=== PATIENT | female | born 1995 | race American Indian/Alaskan Native ===

== ENCOUNTER 2017-08-23 08:29 | Outpatient (CLI) | payer MEDICAID, OTHER ==
[2017-08-23] MEDS ORDERED: LACTATED RINGERS 500 ML IV ONE (08:40)
[2017-08-23 09:22] LABS: Bacteria,Urine 2+ /HPF (Negative); Bilirubin,Urine NEG (Negative); Blood,Urine NEG (Negative); Color,Urine Yellow (Yellow); Mucus,Urine 2+ /HPF; Urobilinogen,Urine < 2.0 mg/dL (<2.0)
[2017-08-23 09:44] LABS: Amphetamine Screen,Urine PRESUMPTIVE NEGATIVE; Benzodiazepines Screen,Urine PRESUMPTIVE NEGATIVE; Cannabinoid Screen,Urine PRESUMPTIVE NEGATIVE; Cocaine Screen,Urine PRESUMPTIVE NEGATIVE; Methadone Screen,Urine PRESUMPTIVE NEGATIVE; Opiate Screen,Urine PRESUMPTIVE NEGATIVE
[2017-08-23 10:43] VITALS: BP 101/58
== END 2017-08-23 10:04 | disposition home or self-care (01) ==
LOC: TRG 08:29
PROVIDERS: ATTEND Obstetrics & Gynecology
DX: O47.03 False labor before 37 completed weeks of gestation, third trimester (principal); Z3A.32 32 weeks gestation of pregnancy; Z79.899 Other long term (current) drug therapy
CPT/HCPCS: 80307; 81001

== ENCOUNTER 2017-08-25 14:11 | Emergency (ER) | payer SELFPAY ==
[2017-08-25 14:44] VITALS: BP 98/50
== END 2017-08-25 15:14 | disposition left against medical advice (07) ==
LOC: ED 14:11
DX: R10.2 Pelvic and perineal pain (principal); Z53.21 Procedure and treatment not carried out due to patient leaving prior to being seen by health care provider

== ENCOUNTER 2017-09-05 13:43 | Outpatient (CLI) | payer MEDICAID ==
[2017-09-05 14:47] LABS: Bacteria,Urine 4+ /HPF (Negative); Bilirubin,Urine NEG (Negative); Blood,Urine MOD (Negative); Color,Urine Amber (Yellow); Mucus,Urine 3+ /HPF
[2017-09-05] MEDS ORDERED: LACTATED RINGERS 500 ML IV ONE (15:00)
--- NOTE | 2017-09-05 17:05 | Ultrasound Report ---
FINAL REPORT EXAM: US OB > = 14 WEEKS FETUS HISTORY: BLEEDING COMPARISON: None. TECHNIQUE: Obstetric ultrasound was performed. FINDINGS: The cervix measures 4 centimeters in length and is closed. There is a grade 2 posterior fundal placenta. There is a single live intrauterine in cephalic presentation. heart rate is 156 beats per minute. Amniotic fluid index is 8.8 centimeters. Anatomical survey demonstrates normal intracranial contents including the cerebellum, choroid plexus, and lateral ventricles. The stomach, kidneys, bladder, diaphragm, heart, and spine are normal. There is a normal triple vessel cord and cord insertion. Biparietal diameter corresponds to a gestational age of 30 weeks, 3 days. Head circumference corresponds to a gestational age of 31 weeks, 2 days. Abdominal circumference corresponds to a gestational age of 30 weeks, 0 days. Femoral length corresponds to a gestational age of 31 weeks, 1 day. Composite gestational age by ultrasound is 30 weeks, 5 days, with estimated date of delivery of 11/09/2017. Estimated weight is 1585 grams. IMPRESSION: Single live intrauterine with composite gestational age by ultrasound of 30 weeks, 5 days, with estimated date of delivery of 11/09/2017.
== END 2017-09-05 17:25 | disposition home or self-care (01) ==
LOC: TRG 13:43 → LD 13:45 → TRG 17:25
PROVIDERS: ATTEND Obstetrics & Gynecology
DX: O47.03 False labor before 37 completed weeks of gestation, third trimester (principal); Z3A.30 30 weeks gestation of pregnancy
CPT/HCPCS: 59025; 76805; 81001

== ENCOUNTER 2017-09-05 20:03 | Outpatient (CLI) | payer MEDICAID ==
[2017-09-05 20:37] VITALS: BP 92/54
== END 2017-09-05 20:59 | disposition home or self-care (01) ==
LOC: TRG 20:03
PROVIDERS: ATTEND Obstetrics & Gynecology
DX: O47.02 False labor before 37 completed weeks of gestation, second trimester (principal); Z3A.34 34 weeks gestation of pregnancy
CPT/HCPCS: 59025

== ENCOUNTER 2017-09-17 22:34 | Outpatient (CLI) | payer MEDICAID ==
[2017-09-17 22:51] VITALS: BP 116/56
--- NOTE | 2017-09-18 00:47 | Ultrasound Report ---
FINAL REPORT PROCEDURE: US OB LIMITED TECHNIQUE: Real-time limited sonographic examination was performed for evaluation of amniotic fluid volume, placental position for each fetus with image documentation (1 or more fetuses). CPT 67189 HISTORY: carmela COMPARISON: No prior studies are available for comparison. FINDINGS: There is a single fetus in a vertex presentation. The placenta is along the fundus of the uterus. Four quadrant amniotic fluid volume measures 10.3 centimeters. heart rate 154 beats per minute. IMPRESSION: There is a single fetus in a vertex presentation. The 4 quadrant amniotic fluid volume measures 10.3 centimeters.
== END 2017-09-18 00:40 | disposition home or self-care (01) ==
LOC: TRG 22:34
PROVIDERS: ATTEND Obstetrics & Gynecology
DX: O47.03 False labor before 37 completed weeks of gestation, third trimester (principal); Z3A.36 36 weeks gestation of pregnancy
CPT/HCPCS: 59025; 76815

== ENCOUNTER 2017-09-23 15:12 | Outpatient (CLI) | payer MEDICAID ==
[2017-09-23] MEDS ORDERED: NITRATEST PAPER MC ONE (15:20)
[2017-09-23 15:33] VITALS: BP 98/50
== END 2017-09-23 19:05 | disposition home or self-care (01) ==
LOC: TRG 15:12
PROVIDERS: ATTEND Obstetrics & Gynecology
DX: O47.03 False labor before 37 completed weeks of gestation, third trimester (principal); Z3A.35 35 weeks gestation of pregnancy
CPT/HCPCS: 59025

== ENCOUNTER 2018-05-26 15:39 | Emergency (ER) | payer MEDICAID, OTHER ==
[2018-05-26 15:52] VITALS: BP 107/53
--- NOTE | 2018-05-26 15:52 | Emergency Department Report ---
Chief Complaint: Extremity Injury, Lower Stated Complaint: RT FOOT/ANKLE Time Seen by Provider: 05/26/18 15:50 - HPI History of Present Illness: PMH NONE LMP BC NO PERIODS PSH NONE RX NONE NO CIG/ETOH/DRUGS CC R ANKLE PAIN P HITTING YESTERDAY ON A BED. SHE STATES SWOLLEN EARLIER AMBULATORY WO LIMP MSE COMPLETED MSE screening note: Focused history and physical exam performed. Due to findings the following was ordered: ED Disposition for MSE Condition: Stable
[2018-05-26] MEDS ORDERED: NORCO 5/325 PO ONE (16:11)
[2018-05-26] MEDS ORDERED: IBUPROFEN PO ONE (16:11)
--- NOTE | 2018-05-26 16:12 | Emergency Department Report ---
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 She complained of pain and swelling to right ankle with some bruising. Pain is 6 out of 10 and worse with movement and no alleviating factors. Denies any pain rating of her extremities. no medication taken MD Complaint: ankle injury (injury to right ankle) Onset/Timin Injury: Ankle: Right (pain, swollen and person) Type of Injury: blunt Place: work Severity: moderate Severity scale (0 -10): 6 Improves With: nothing Worsens With: weight bearing, palpation Context: direct blow Associated Symptoms: swelling, ambulatory. denies: numbness, tingling, unable to bear weight, able to partially bear weight Treatments Prior to Arrival: other (none) - Related Data Previous Rx's Medication Instructions Recorded Last Taken Type Ibuprofen [Motrin] 600 mg PO Q8H PRN #12 tablet 05/26/18 Unknown Rx Allergies Allergy/AdvReac Type Severity Reaction Status Date / Time No Known Allergies Allergy Verified 09/24/13 21:11 ED Review of Systems ROS: Stated complaint: RT FOOT/ANKLE Other details as noted in HPI Constitutional: denies: chills, fever ENT: denies: throat pain, congestion Respiratory: denies: cough, shortness of breath, wheezing Cardiovascular: denies: chest pain, palpitations, dyspnea on exertion, edema, syncope Gastrointestinal: denies: nausea, vomiting Musculoskeletal: joint swelling, arthralgia. denies: back pain, myalgia Skin: denies: rash Neurological: denies: headache, numbness, paresthesias, confusion, abnormal gait, vertigo ED Past Medical Hx - Past Medical History Previous Medical History?: No Hx Hypertension: No Hx Congestive Heart Failure: No Hx Diabetes: No Hx Deep Vein Thrombosis: No Hx Renal Disease: No Hx Sickle Cell Disease: No Hx Seizures: No Hx Asthma: No Hx COPD: No Hx HIV: No - Surgical History Past Surgical History?: No - Family History Family history: no significant - Social History Smoking Status: Never Smoker Substance Use Type: None - Medications Home Medications: Home Medications Medication Instructions Recorded Confirmed Last Taken Type Ibuprofen [Motrin] 600 mg PO Q8H PRN #12 tablet 05/26/18 Unknown Rx ED Physical Exam - General Limitations: No Limitations General appearance: alert, in no apparent distress - Head Head exam: Present: atraumatic, normocephalic, normal inspection - Eye Eye exam: Present: normal appearance, PERRL, EOMI Pupils: Present: normal accommodation - ENT ENT exam: Present: normal exam, normal orophraynx, mucous membranes moist - Neck Neck exam: Present: normal inspection, full ROM. Absent: tenderness, lymphadenopathy - Respiratory Respiratory exam: Present: normal lung sounds bilaterally. Absent: respiratory distress, chest wall tenderness - Cardiovascular Cardiovascular Exam: Present: regular rate, normal rhythm, normal heart sounds - Extremities Exam Extremities exam: Present: normal inspection, full ROM, tenderness (right ankle), normal capillary refill, joint swelling (mild swelling), other (extremity physical exam except for right ankle with mild swelling and tender to palpate. No bony deformity or crepitus. No joint effusion. No laceration and mild ecchymosis.). Absent: pedal edema, calf tenderness - Back Exam Back exam: Present: normal inspection, full ROM, other (ambulates without any difficulties.). Absent: tenderness, paraspinal tenderness, vertebral tenderness, rash noted - Neurological Exam Neurological exam: Present: alert, oriented X3, normal gait, reflexes normal. Absent: motor sensory deficit - Psychiatric Psychiatric exam: Present: normal affect, normal mood - Skin Skin exam: Present: warm, dry, intact, normal color, ecchymosis (to right ankle, minimal). Absent: erythema ED Course Vital Signs 05/26/18 05/26/18 15:50 16:18 Temperature 97.9 F Pulse Rate 71 Respiratory 18 18 Rate Blood Pressure 107/53 O2 Sat by Pulse 99 Oximetry - Reevaluation(s) Reevaluation #1: 05/26/18 17:05 Patient given 5/ tablets and Motrin 600 mg by mouth in emergency room which relieved her pain. ED Lower Extremity MDM - Radiology Data Radiology results: report reviewed Right ankle 2 view x-ray dictated radiologist report reviewed by myself in no acute findings noted Findings [facility] [address] [place] [address] XRay Report Signed Patient: SUNNY SNIDER MR#: [id number] : 1995 Acct:[id number] Age/Sex: 22 / F ADM Date: 05/26/18 Loc: ED Attending Dr: Ordering Physician: LORI FIGUEROA Date of Service: 05/26/18 Procedure(s): XR ankle 2V RT Accession Number(s): [id number] cc: LORI FIGUEROA Fluoro Time In Minutes: FINAL REPORT EXAM: XR ANKLE 2V RT HISTORY: ANKLE PAIN TECHNIQUE: AP and lateral radiographs of the right ankle. PRIORS: None. FINDINGS: No fracture. No dislocation. Normal mineralization. No soft tissue abnormality. The joint spaces are maintained. No joint effusion. IMPRESSION: Normal right ankle. Transcribed By: MG Dictated By: REYNA ROBLEDO MD Electronically Authenticated By: REYNA ROBLEDO MD Signed Date/Time: 05/26/181655 DD/ 54 TD/TT: 05/26/181654 - Medical Decision Making This is a 22-year-old female here report that she injured her right ankle work and she has had pain. She received Jesse and Motrin and emergency room and pain his pain relief. Her vital signs are stable she is afebrile and patient discharged home in stable condition with prescription for Motrin and to follow- up with her primary care doctor in 3-5 days if she is not better. Rice therapy explained. - Differential Diagnosis FX, dislocation, sprain, strain, MSK pain Critical care attestation.: If time is entered above; I have spent that time in minutes in the direct care of this critically ill patient, excluding procedure time. ED Disposition Clinical Impression: Ankle pain, right Qualifiers: Chronicity: acute Qualified Code(s): M25.571 - Pain in right ankle and joints of right foot Right ankle injury Qualifiers: Encounter type: initial encounter Qualified Code(s): S99.911A - Unspecified injury of right ankle, initial encounter Disposition: DC-01 TO HOME OR SELFCARE Is pt being admited?: No Does the pt Need Aspirin: No Condition: Stable Instructions: Arthralgia (ED), Ankle Exercises (GEN), RICE Therapy (ED) Additional Instructions: Please follow up with orthopedic doctor a primary care doctor if he pain is not better in 3-5 days. Take Motrin for pain but please not take this medication and to stomach is aching cause irritation to some of N and If his symptoms worsen, return to emergency room` Referrals: MELANIE MCKINNEY MD [Staff Physician] - 3-5 Days [facility] [Outside] - 3-5 Days Forms: Work/School Release Form(ED)
--- NOTE | 2018-05-26 16:56 | XRay Report ---
FINAL REPORT EXAM: XR ANKLE 2V RT HISTORY: ANKLE PAIN TECHNIQUE: AP and lateral radiographs of the right ankle. PRIORS: None. FINDINGS: No fracture. No dislocation. Normal mineralization. No soft tissue abnormality. The joint spaces are maintained. No joint effusion. IMPRESSION: Normal right ankle.
== END 2018-05-26 17:59 | disposition home or self-care (01) ==
LOC: ED 15:39
DX: S99.911A Unspecified injury of right ankle, initial encounter (principal); W22.8XXA Striking against or struck by other objects, initial encounter; Y93.89 Activity, other specified; Y92.89 Other specified places as the place of occurrence of the external cause; Y99.8 Other external cause status

== ENCOUNTER 2018-09-10 14:22 | Emergency (ER) | payer SELFPAY ==
[2018-09-10 14:32] VITALS: BP 114/51
--- NOTE | 2018-09-10 14:58 | Emergency Department Report ---
Blank Doc - Documentation Documentation: This is a 22-year-old female that presents with right thigh muscle pain. Denies any calf pain. Denies any injuries. This initial assessment/diagnostic orders/clinical plan/treatment(s) is/are subject to change based on patient's health status, clinical progression and re-assessment by fellow clinical providers in the ED. Further treatment and workup at subsequent clinical providers discretion. Patient/guardians urged not to elope from the ED as their condition may be serious if not clinically assessed and managed. Initial orders include: 1- Patient sent to [facility] for further evaluation and treatment
--- NOTE | 2018-09-10 17:44 | Emergency Department Report ---
ED Lower Extremity HPI - General Chief Complaint: Extremity Injury, Lower Stated Complaint: RT LEG PAIN Time Seen by Provider: 09/10/18 14:56 Source: patient Mode of arrival: Ambulatory Limitations: No Limitations - History of Present Illness Initial Comments: Patient is a 22-year-old Af[place] female who presents for right anterior thigh pain states she strained at work lifting 3 days ago there is no numbness no tingling no erythema ,pain is exacerbated by movement and palpation. rom is intact pt is ambulatory with steady gait. MD Complaint: thigh injury Onset/Timin -: days(s) Injury: Thigh: Right Type of Injury: hyperextension Place: work Severity: moderate Severity scale (0 -10): 3 Improves With: rest Worsens With: movement, palpation Context: other (lifting hyperextended. ) Associated Symptoms: ambulatory. denies: snap/pop sensation, swelling, numbness, tingling - Related Data Previous Rx's Medication Instructions Recorded Last Taken Type Ibuprofen [Motrin] 600 mg PO Q8H PRN #12 tablet 05/26/18 Unknown Rx Cyclobenzaprine [Flexeril] 10 mg PO TID PRN #30 tablet 09/10/18 Unknown Rx Ibuprofen [Motrin 800 MG tab] 800 mg PO Q8HR PRN #30 tablet 09/10/18 Unknown Rx Menthol/Camphor [[place] 1 applicatio TP QID PRN #1 tube 09/10/18 Unknown Rx Ointment] Allergies Allergy/AdvReac Type Severity Reaction Status Date / Time No Known Allergies Allergy Verified 09/24/13 21:11 ED Review of Systems ROS: Stated complaint: RT LEG PAIN Other details as noted in HPI Constitutional: denies: chills, fever Eyes: denies: eye pain, eye discharge, vision change ENT: denies: ear pain, throat pain Respiratory: denies: cough, shortness of breath, wheezing Cardiovascular: denies: chest pain, palpitations Endocrine: no symptoms reported Gastrointestinal: denies: abdominal pain, nausea, diarrhea Genitourinary: denies: urgency, dysuria, discharge Musculoskeletal: other (right thigh pain ) Skin: denies: rash, lesions Neurological: as per HPI Psychiatric: denies: anxiety, depression Hematological/Lymphatic: denies: easy bleeding, easy bruising ED Past Medical Hx - Past Medical History Previous Medical History?: Yes Hx Hypertension: No Hx Congestive Heart Failure: No Hx Diabetes: No Hx Deep Vein Thrombosis: No Hx Renal Disease: No Hx Sickle Cell Disease: No Hx Seizures: No Hx Asthma: No Hx COPD: No Hx HIV: No - Surgical History Past Surgical History?: No - Social History Smoking Status: Never Smoker Substance Use Type: Non Opiate Pain, Other - Medications Home Medications: Home Medications Medication Instructions Recorded Confirmed Last Taken Type Ibuprofen [Motrin] 600 mg PO Q8H PRN #12 tablet 05/26/18 Unknown Rx Cyclobenzaprine [Flexeril] 10 mg PO TID PRN #30 tablet 09/10/18 Unknown Rx Ibuprofen [Motrin 800 MG tab] 800 mg PO Q8HR PRN #30 tablet 09/10/18 Unknown Rx Menthol/Camphor [[place] 1 applicatio TP QID PRN #1 tube 09/10/18 Unknown Rx Ointment] ED Physical Exam - General Limitations: No Limitations General appearance: alert, in no apparent distress - Head Head exam: Present: atraumatic, normocephalic - Eye Eye exam: Present: normal appearance, PERRL, EOMI Pupils: Present: normal accommodation - ENT ENT exam: Present: mucous membranes moist - Neck Neck exam: Present: normal inspection - Respiratory Respiratory exam: Present: normal lung sounds bilaterally. Absent: respiratory distress, chest wall tenderness - Cardiovascular Cardiovascular Exam: Present: regular rate, normal rhythm. Absent: systolic murmur, diastolic murmur, rubs, gallop - GI/Abdominal GI/Abdominal exam: Present: soft, normal bowel sounds. Absent: distended, tenderness, bruit, hernia - Rectal Rectal exam: Present: deferred - Extremities Exam Extremities exam: Present: normal inspection, full ROM, tenderness (anterior thigh pain to deep palpation no swelling no ecchymosis no deformity rom intact unrestrictec, strength 5/5 ), normal capillary refill. Absent: pedal edema, calf tenderness - Back Exam Back exam: Present: normal inspection, full ROM. Absent: tenderness, CVA tenderness (R), CVA tenderness (L), muscle spasm, rash noted - Neurological Exam Neurological exam: Present: alert, oriented X3, CN II-XII intact, normal gait, reflexes normal - Psychiatric Psychiatric exam: Present: normal affect, normal mood - Skin Skin exam: Present: warm, dry, intact, normal color. Absent: rash ED Course Vital Signs 09/10/18 14:30 Temperature 98.2 F Pulse Rate 69 Respiratory 18 Rate Blood Pressure 114/51 Blood Pressure 114/51 [Right] O2 Sat by Pulse 99 Oximetry ED Lower Extremity MDM - Medical Decision Making this arturo a thigh muscle strain , plan nsaids muscle relaxant analgesic balm moist heat therapy follow up with pcp in 2-3 days return to ed if symptoms worsen return to ed if symptoms worsen. Critical care attestation.: If time is entered above; I have spent that time in minutes in the direct care of this critically ill patient, excluding procedure time. ED Disposition Clinical Impression: Muscle strain of right thigh Qualifiers: Encounter type: initial encounter Qualified Code(s): S76.911A - Strain of unspecified muscles, fascia and tendons at thigh level, right thigh, initial encounter Disposition: TO HOME OR SELFCARE Is pt being admited?: No Does the pt Need Aspirin: No Condition: Stable Instructions: Muscle Strain (ED) Prescriptions: Cyclobenzaprine [Flexeril] 10 mg PO TID PRN #30 tablet PRN Reason: Muscle Spasm Ibuprofen [Motrin 800 MG tab] 800 mg PO Q8HR PRN #30 tablet PRN Reason: pain Menthol/Camphor [[place] Ointment] 1 applicatio TP QID PRN #1 tube PRN Reason: pain Referrals: JOSE SIMON MD [Primary Care Provider] - 3-5 Days Forms: Work/School Release Form(ED) Time of Disposition: 17:44
== END 2018-09-10 17:51 | disposition home or self-care (01) ==
LOC: ED 14:22
DX: S76.911A Strain of unspecified muscles, fascia and tendons at thigh level, right thigh, initial encounter (principal); X50.9XXA Other and unspecified overexertion or strenuous movements or postures, initial encounter; Y93.89 Activity, other specified; Y92.89 Other specified places as the place of occurrence of the external cause; Y99.8 Other external cause status

== ENCOUNTER 2019-03-23 15:28 | Emergency (ER) | payer SELFPAY ==
--- NOTE | 2019-03-23 17:42 | Event Note ---
ED Screening Note Date of service: 03/23/19 Time: 17:39 ED Screening Note: This is a 23 y.o. F. that presents to the ER with chest discomfort, chills, cough, and myalgia for 1 day. States daughter is sick with similar symptoms. Taking medication without relief. LMP control This initial assessment/diagnostic orders/clinical plan/treatment(s) is/are subject to change based on patients health status, clinical progression and re- assessment by fellow clinical providers in the ED. Further treatment and workup at subsequent clinical providers discretion. Patient/guardian urged not to elope from the ED as their condition may be serious if not clinically assessed and managed. Initial orders include: CXR
--- NOTE | 2019-03-23 18:35 | XRay Report ---
CHEST PA AND LATERAL VIEWS INDICATION: cough and fever. COMPARISON: None FINDINGS: Support devices: None Heart: Normal Lungs/Pleura: No acute pulmonary or pleural findings. IMPRESSION: 1. No active disease. Signer Name: Ron Ingram MD Signed: 03/23/2019 6:31 PM Workstation Name: [id number]
[2019-03-23] MEDS ORDERED: IBUPROFEN 800 MG TAB PO ONE (21:21)
[2019-03-23] MEDS ORDERED: ONDANSETRON 4 MG ODT TAB PO ONE (21:23)
[2019-03-23] MEDS ORDERED: IPRATROPIUM/ALBUTEROL SULFATE 3 ML AMPUL.NEB IH ONE (21:28)
[2019-03-23] MEDS ORDERED: predniSONE 20 MG TAB PO ONE (21:28)
--- NOTE | 2019-03-23 21:39 | Emergency Department Report ---
- General Chief Complaint: Upper Respiratory Infection Stated Complaint: COUGH/CHEST PAIN Time Seen by Provider: 03/23/19 17:39 Source: patient Mode of arrival: Ambulatory Limitations: No Limitations - History of Present Illness Initial Comments: This is a 23 y.o. F. that presents to the ER with coug, fever, chills, and myalgia for 1 day. pt states multiple sick contacts. there are no relieving factors. symptoms are exacerbated by activity and environmental exposure. pt denies sob, no cp at this time. MD Complaint: fever, cough, sore throat, rhinorrhea, nasal congestion -: hour(s) (12) Severity: moderate Severity scale (0 -10): 4 Quality: aching Consistency: constant Improves With: nothing Worsens With: activity Context: sick contacts Associated Symptoms: fever, chills, myalgias, rhinorrhea, nasal congestion, sore throat, cough, hoarseness, ear pain. denies: right sweats, weight loss - Related Data Previous Rx's Medication Instructions Recorded Last Taken Type Ibuprofen [Motrin] 600 mg PO Q8H PRN #12 tablet 05/26/18 Unknown Rx Cyclobenzaprine [Flexeril] 10 mg PO TID PRN #30 tablet 09/10/18 Unknown Rx Ibuprofen [Motrin 800 MG tab] 800 mg PO Q8HR PRN #30 tablet 09/10/18 Unknown Rx Menthol/Camphor [Medical [place] 1 applicatio TP QID PRN #1 tube 09/10/18 Unknown Rx Ointment] ALBUTEROL Inhaler (OR & NICU) 2 puff IH QID PRN #8.5 gram 03/23/19 Unknown Rx [ProAir HFA Inhaler] Azithromycin [Zithromax Z-AYAD] 250 mg PO DAILY #6 tab 03/23/19 Unknown Rx Benzonatate [Tessalon Perles] 100 mg PO Q8HR PRN #30 capsule 03/23/19 Unknown Rx Ibuprofen [Motrin 800 MG tab] 800 mg PO Q8HR PRN #30 tablet 03/23/19 Unknown Rx predniSONE [Deltasone] 40 mg PO QDAY 5 Days #10 tab 03/23/19 Unknown Rx Allergies Allergy/AdvReac Type Severity Reaction Status Date / Time No Known Allergies Allergy Verified 03/23/19 16:16 ED Review of Systems ROS: Stated complaint: COUGH/CHEST PAIN Other details as noted in HPI Constitutional: denies: chills, fever Eyes: denies: eye pain, eye discharge, vision change ENT: ear pain, throat pain, congestion Respiratory: cough, shortness of breath, wheezing Cardiovascular: denies: chest pain, palpitations Endocrine: no symptoms reported Gastrointestinal: denies: abdominal pain, nausea, vomiting, diarrhea Genitourinary: denies: urgency, dysuria, discharge Musculoskeletal: denies: back pain, joint swelling, arthralgia Skin: denies: rash, lesions Neurological: denies: headache, weakness, numbness, paresthesias, confusion, vertigo Psychiatric: denies: auditory hallucinations Hematological/Lymphatic: denies: easy bleeding, easy bruising ED Past Medical Hx - Past Medical History Hx Hypertension: No Hx Congestive Heart Failure: No Hx Diabetes: No Hx Deep Vein Thrombosis: No Hx Renal Disease: No Hx Sickle Cell Disease: No Hx Seizures: No Hx Asthma: No Hx COPD: No Hx HIV: No - Social History Smoking Status: Never Smoker Substance Use Type: None - Medications Home Medications: Home Medications Medication Instructions Recorded Confirmed Last Taken Type Ibuprofen [Motrin] 600 mg PO Q8H PRN #12 tablet 05/26/18 Unknown Rx Cyclobenzaprine [Flexeril] 10 mg PO TID PRN #30 tablet 09/10/18 Unknown Rx Ibuprofen [Motrin 800 MG tab] 800 mg PO Q8HR PRN #30 tablet 09/10/18 Unknown Rx Menthol/Camphor [Medical [place] 1 applicatio TP QID PRN #1 tube 09/10/18 Unknown Rx Ointment] ALBUTEROL Inhaler (OR & NICU) 2 puff IH QID PRN #8.5 gram 03/23/19 Unknown Rx [ProAir HFA Inhaler] Azithromycin [Zithromax Z-AYAD] 250 mg PO DAILY #6 tab 03/23/19 Unknown Rx Benzonatate [Tessalon Perles] 100 mg PO Q8HR PRN #30 capsule 03/23/19 Unknown Rx Ibuprofen [Motrin 800 MG tab] 800 mg PO Q8HR PRN #30 tablet 03/23/19 Unknown Rx predniSONE [Deltasone] 40 mg PO QDAY 5 Days #10 tab 03/23/19 Unknown Rx ED Physical Exam - General Limitations: No Limitations General appearance: alert, in no apparent distress - Head Head exam: Present: atraumatic, normocephalic - Eye Eye exam: Present: normal appearance, PERRL, EOMI Pupils: Present: normal accommodation - ENT ENT exam: Present: mucous membranes moist - Expanded ENT Exam Expanded Ear exam: Present: normal external inspection Throat exam: Positive: tonsillar erythema, tonsillomegaly, other (uvula midline no stridor ). Negative: tonsillar exudate, R peritonsillar mass, L peritonsillar mass - Neck Neck exam: Present: normal inspection, full ROM. Absent: tenderness - Respiratory Respiratory exam: Present: normal lung sounds bilaterally, chest wall ten derness. Absent: respiratory distress, wheezes, stridor - Cardiovascular Cardiovascular Exam: Present: regular rate, normal rhythm, normal heart sounds. Absent: systolic murmur, diastolic murmur, rubs, gallop - GI/Abdominal GI/Abdominal exam: Present: soft, normal bowel sounds, other. Absent: distended, tenderness, guarding, bruit, hernia - Rectal Rectal exam: Present: deferred - Extremities Exam Extremities exam: Present: normal inspection, full ROM, normal capillary refill. Absent: tenderness, pedal edema, joint swelling - Back Exam Back exam: Present: normal inspection, full ROM, muscle spasm. Absent: tenderness, CVA tenderness (R), CVA tenderness (L), rash noted - Neurological Exam Neurological exam: Present: alert, oriented X3, CN II-XII intact, normal gait, reflexes normal. Absent: motor sensory deficit - Psychiatric Psychiatric exam: Present: normal affect, normal mood - Skin Skin exam: Present: warm, dry, intact, normal color. Absent: rash ED Course Vital Signs 03/23/19 17:39 Temperature 99.9 F H Pulse Rate 134 H Respiratory 18 Rate Blood Pressure 125/61 O2 Sat by Pulse 97 Oximetry ED Medical Decision Making - Radiology Data Radiology results: image reviewed Ordering Physician: JHOAN ALEXANDER Date of Service: 03/23/19 Procedure(s): XR chest routine 2V Accession Number(s): [id number] cc: JHOAN ALEXANDER Fluoro Time In Minutes: CHEST PA AND LATERAL VIEWS INDICATION: cough and fever. COMPARISON: None FINDINGS: Support devices: None Heart: Normal Lungs/Pleura: No acute pulmonary or pleural findings. IMPRESSION: 1. No active disease. Signer Name: Ron Ingram MD Signed: 03/23/2019 6:31 PM Workstation Name: [id number] Transcribed By: TM Dictated By: Ron Ingram MD Electronically Authenticated By: Ron Ingram MD Signed Date/Time: 03/23/191830 DD/ 29 TD/TT: - Medical Decision Making Patient was is nebulized treatment here in ED stay she has albuterol at home , rapid strep still pending, patient advises that she has to leave she can no longer wait, plan treat for bronchitis Z-Ayad ,albuterol ,and prednisone Tessalon Perles, and ibuprofen when necessary pain fever patient will follow up with PCP in 2-3 days return to emergency department should symptoms worsen patient verbalizes agreement and understanding with same patient DC'd to home in stable condition at this time. Heart rate is reduced to 102 bmp. Critical care attestation.: If time is entered above; I have spent that time in minutes in the direct care of this critically ill patient, excluding procedure time. ED Disposition Clinical Impression: Bronchitis, Viral syndrome Disposition: DC-01 TO HOME OR SELFCARE Is pt being admited?: No Does the pt Need Aspirin: No Condition: Stable Instructions: Acute Bronchitis (ED), Viral Syndrome (ED) Prescriptions: predniSONE [Deltasone] 40 mg PO QDAY 5 Days #10 tab Ibuprofen [Motrin 800 MG tab] 800 mg PO Q8HR PRN #30 tablet PRN Reason: pain fever ALBUTEROL Inhaler (OR & NICU) [ProAir HFA Inhaler] 2 puff IH QID PRN #8.5 gram PRN Reason: Shortness Of Breath Benzonatate [Tessalon Perles] 100 mg PO Q8HR PRN #30 capsule PRN Reason: Cough Azithromycin [Zithromax Z-AYAD] 250 mg PO DAILY #6 tab Referrals: [facility] [Outside] - 3-5 Days Forms: Work/School Release Form(ED)
[2019-03-23 22:33] VITALS: BP 90/50
== END 2019-03-23 22:33 | disposition home or self-care (01) ==
LOC: ED 15:28
DX: J40 Bronchitis, not specified as acute or chronic (principal); B34.9 Viral infection, unspecified
CPT/HCPCS: 71046; 99283; J7512; Q0162

== ENCOUNTER 2020-02-28 18:37 | Emergency (ER) | payer SELFPAY ==
[2020-02-28 20:10] LABS: Basophils % (Auto) 0.5 % (0.0-1.8); Eosinophils % (Auto) 0.4 % (0.0-4.3); Hematocrit 31.8 % (30.3-42.9); Hemoglobin 11.1 gm/dl (10.1-14.3); Lymphocytes # (Auto) 2.2 K/mm3 (1.2-5.4); Lymphocytes % (Auto) 25.4 % (13.4-35.0); Mean Corpuscular HGB Conc 35 % (30-34); Mean Corpuscular Volume 88 fl (79-97); Monocytes # (Auto) 0.7 K/mm3 (0.0-0.8); Monocytes % (Auto) 8.5 % (0.0-7.3); Platelet Count 330 K/mm3 (140-440); Red Blood Count 3.61 M/mm3 (3.65-5.03); Red Cell Distribution Width 15.3 % (13.2-15.2)
[2020-02-28 20:12] LABS: Bacteria,Urine 1+ /HPF (Negative); Bilirubin,Urine NEG (Negative); Blood,Urine SM (Negative); Color,Urine Yellow (Yellow); Mucus,Urine FEW /HPF; Protein,Urine <15 mg/dL mg/dL (Negative)
[2020-02-28 20:25] LABS: Blood Urea Nitrogen 9 mg/dL (7-17); Calcium 8.7 mg/dL (8.4-10.2); Hemolysis Index 4
[2020-02-28 20:26] LABS: BUN/Creatinine Ratio 15
--- NOTE | 2020-02-28 20:34 | Ultrasound Report ---
EXAMINATION: US OB <= 14 weeks fetus HISTORY: abdominal pain TECHNIQUE: Multiple transabdominal and endovaginal longitudinal and transverse 2D real time ultrasoun d images through the pelvis were acquired. In addition, power Doppler was performed. FINDINGS: Uterus measures 9.7 x 9.1 x 8.6 cm. There is a single live intrauterine , with heart r ate measuring 159 bpm. Measurements correspond to a gestational age of 12 weeks and 5 days. Amniotic fluid appears appropriate, though not measured. Ovaries are not visualized. No ectopic is identified. No free fluid is seen. IMPRESSION: Single live intrauterine with measurements corresponding to a gestational age of 12 weeks a nd 5 days. heart rate measures 159 bpm. Signer Name: Kenneth Ríos MD Signed: 02/28/2020 8:30 PM Workstation Name: [id number]
--- NOTE | 2020-02-28 21:03 | Emergency Department Report ---
ED Female HPI - General Chief complaint: Abdominal Pain Stated complaint: ABD PAINS Time Seen by Provider: 02/28/20 20:27 Source: patient Mode of arrival: Ambulatory Limitations: No Limitations - History of Present Illness Initial comments: Plan for your female to the emergency department complaining of being 2 months and having some mild nausea and abdominal cramps which caused her to miss work schedule him department for evaluation said is primarily needs a work note Complaint: pelvic pain -: Gradual, days(s) Radiation: non-radiating Severity: mild Quality: cramping, aching Consistency: intermittent Improves with: none Worsens with: none Are you Now?: Yes Associated Symptoms: abdominal pain, nausea/vomiting. denies: vaginal discharge, vaginal bleeding, loss of appetite, dysuria, hematuria, syncope, weakness - Related Data Previous Rx's Medication Instructions Recorded Last Taken Type Ibuprofen [Motrin] 600 mg PO Q8H PRN #12 tablet 05/26/18 Unknown Rx Cyclobenzaprine [Flexeril] 10 mg PO TID PRN #30 tablet 09/10/18 Unknown Rx Ibuprofen [Motrin 800 MG tab] 800 mg PO Q8HR PRN #30 tablet 09/10/18 Unknown Rx Menthol/Camphor [[place] 1 applicatio TP QID PRN #1 tube 09/10/18 Unknown Rx Ointment] Albuterol Mdi (or & Nicu Only) 2 puff IH QID PRN #8.5 gram 03/23/19 Unknown Rx [ProAir HFA Inhaler] Azithromycin [Zithromax Z-NICOLE] 250 mg PO DAILY #6 tab 03/23/19 Unknown Rx Benzonatate [Tessalon Perles] 100 mg PO Q8HR PRN #30 capsule 03/23/19 Unknown Rx Ibuprofen [Motrin 800 MG tab] 800 mg PO Q8HR PRN #30 tablet 03/23/19 Unknown Rx predniSONE [Deltasone] 40 mg PO QDAY 5 Days #10 tab 03/23/19 Unknown Rx Doxylamine Succinate/Vit B6 1 each PO BID #20 tablet. 02/28/20 Unknown Rx [Juwan Mckeon 10-10 mg Tablet] Allergies Allergy/AdvReac Type Severity Reaction Status Date / Time No Known Allergies Allergy Verified 03/23/19 16:16 ED Review of Systems ROS: Stated complaint: ABD PAINS Other details as noted in HPI Comment: All other systems reviewed and negative ED Past Medical Hx - Past Medical History Previous Medical History?: No Hx Hypertension: No Hx Congestive Heart Failure: No Hx Diabetes: No Hx Deep Vein Thrombosis: No Hx Renal Disease: No Hx Sickle Cell Disease: No Hx Seizures: No Hx Asthma: No Hx COPD: No Hx HIV: No - Surgical History Past Surgical History?: No - Social History Smoking Status: Never Smoker Substance Use Type: None - Medications Home Medications: Home Medications Medication Instructions Recorded Confirmed Last Taken Type Ibuprofen [Motrin] 600 mg PO Q8H PRN #12 tablet 05/26/18 Unknown Rx Cyclobenzaprine [Flexeril] 10 mg PO TID PRN #30 tablet 09/10/18 Unknown Rx Ibuprofen [Motrin 800 MG tab] 800 mg PO Q8HR PRN #30 tablet 09/10/18 Unknown Rx Menthol/Camphor [[place] 1 applicatio TP QID PRN #1 tube 09/10/18 Unknown Rx Ointment] Albuterol Mdi (or & Nicu Only) 2 puff IH QID PRN #8.5 gram 03/23/19 Unknown Rx [ProAir HFA Inhaler] Azithromycin [Zithromax Z-NICOLE] 250 mg PO DAILY #6 tab 03/23/19 Unknown Rx Benzonatate [Tessalon Perles] 100 mg PO Q8HR PRN #30 capsule 03/23/19 Unknown Rx Ibuprofen [Motrin 800 MG tab] 800 mg PO Q8HR PRN #30 tablet 03/23/19 Unknown Rx predniSONE [Deltasone] 40 mg PO QDAY 5 Days #10 tab 03/23/19 Unknown Rx Doxylamine Succinate/Vit B6 1 each PO BID #20 tablet. 02/28/20 Unknown Rx [Diclegis Dr 10-10 mg Tablet] ED Physical Exam - General Limitations: No Limitations General appearance: alert, in no apparent distress - Head Head exam: Present: atraumatic, normocephalic - Eye Eye exam: Present: normal appearance, PERRL Pupils: Present: normal accommodation - ENT ENT exam: Present: normal exam, normal orophraynx, mucous membranes moist - Neck Neck exam: Present: normal inspection, full ROM - Respiratory Respiratory exam: Present: normal lung sounds bilaterally. Absent: respiratory distress, wheezes, chest wall tenderness, accessory muscle use - Cardiovascular Cardiovascular Exam: Present: regular rate, normal rhythm. Absent: systolic murmur, diastolic murmur, rubs, gallop - GI/Abdominal GI/Abdominal exam: Present: soft, normal bowel sounds. Absent: tenderness, guarding, hyperactive bowel sounds, hypoactive bowel sounds - Extremities Exam Extremities exam: Present: normal inspection - Back Exam Back exam: Present: normal inspection - Neurological Exam Neurological exam: Present: alert, oriented X3 - Psychiatric Psychiatric exam: Present: normal affect, normal mood - Skin Skin exam: Present: warm, dry, intact, normal color. Absent: rash ED Course Vital Signs 02/28/20 19:21 Temperature 98.3 F Pulse Rate 74 Respiratory 18 Rate Blood Pressure 98/53 O2 Sat by Pulse 100 Oximetry ED Medical Decision Making - Lab Data Result diagrams: 02/28/20 19:25 02/28/20 19:25 - Radiology Data Radiology results: report reviewed Referring Physician:CHRIS DURÁN IIIPatient Name:SUNNY Hanson nt ID:[id number] of :[id number]:FemaleAccession:[id number] Date:[id number] Status:Finalized Findings [facility] [address] [place] [address] Ultrasound Report Signed Patient: SUNNY SNIDER MR#: [id number] : 1995 Acct:[id number] Age/Sex: 24 / F ADM Date: 02/28/20 Loc: ED Attending Dr: Ordering Physician: CHRIS DURÁN III, MD Date of Service: 02/28/20 Procedure(s): US OB <= 14 weeks fetus Accession Number(s): [id number] cc: CHRIS DURÁN III, MD EXAMINATION: US OB <= 14 weeks fetus HISTORY: abdominal pain TECHNIQUE: Multiple transabdominal and endovaginal longitudinal and transverse 2D real time ultrasound images through the pelvis were acquired. In addition, power Doppler was performed. FINDINGS: Uterus measures 9.7 x 9.1 x 8.6 cm. There is a single live intrauterine , with heart rate measuring 159 bpm. Measurements correspond to a gestational age of 12 weeks and 5 days. Amniotic fluid appears appropriate, though not measured. Ovaries are not visualized. No ectopic is identified. No free fluid is seen. IMPRESSION: Single live intrauterine with measurements corresponding to a gestational age of 12 weeks and 5 days. heart rate measures 159 bpm. Signer Name: Monica Ríos MD Signed: 02/28/2020 8:30 PM Workstation Name: [id number] Transcribed By: NIC Dictated By: MONICA LAZO MD Electronically Authenticated By: MONICA LAZO MD Signed Date/Time: 02/28/202029 DD/ 25 TD/TT: - Medical Decision Making This patient presents with vaginal bleeding in the first trimester, differential diagnosis includes ectopic , IUP, month threatened/inevitable , along with a completed . Patient is HDS and without a history of coagulopathy or infectious symptoms. The ultrasound does reveal an IUP at 12 weeks with an elevated hCG quant Based on exam history and ED work-up patient presentation is not consistent with an ectopic , life-threatening coagulopathy, trauma, serious bacterial infection, central process or other emergency Critical care attestation.: If time is entered above; I have spent that time in minutes in the direct care of this critically ill patient, excluding procedure time. ED Disposition Clinical Impression: Pelvic pain affecting , Nausea & vomiting Disposition: - TO HOME OR SELFCARE Is pt being admited?: No Does the pt Need Aspirin: No Condition: Stable Instructions: Abdominal Pain (ED), Nausea and Vomiting, Adult, Exercise During , Pelvic Pain, Female, [id number] Additional Instructions: Please keep your appointment with your DENT REMOVER this Tuesday Prescriptions: Doxylamine Succinate/Vit B6 [Juwan Mckeon 10-10 mg Tablet] 1 each PO BID #20 tablet. Referrals: PRIMARY CARE, [Primary Care Provider] - 3-5 Days [facility] [Provider Group] - 3-5 Days
[2020-02-28 21:06] VITALS: BP 112/48
== END 2020-02-28 21:51 | disposition home or self-care (01) ==
LOC: ED 18:37
DX: O26.891 Other specified pregnancy related conditions, first trimester (principal); R10.2 Pelvic and perineal pain; O21.8 Other vomiting complicating pregnancy; Z79.899 Other long term (current) drug therapy; Z3A.12 12 weeks gestation of pregnancy
CPT/HCPCS: 36415; 76801; 80048; 81001; 84702; 85025

== ENCOUNTER 2020-04-04 11:03 | Emergency (ER) | payer SELFPAY ==
[2020-04-04 11:14] VITALS: BP 107/54
[2020-04-04] MEDS ORDERED: ACETAMINOPHEN 325 MG TAB PO ONE (11:21)
[2020-04-04] MEDS ORDERED: METOCLOPRAMIDE 10 MG TAB PO ONE (11:21)
--- NOTE | 2020-04-04 11:22 | Emergency Department Report ---
ED HPI - General Chief complaint: Vaginal Bleeding Stated complaint: 19WKS PREG/VAG BLEED/NO MOVEMENT Time Seen by Provider: 04/04/20 11:19 Source: patient Mode of arrival: Ambulatory Limitations: No Limitations - History of Present Illness Initial comments: Pt is a 24 yo female who presents to the ED with c/o vaginal bleeding that began last night. she states she is changing her pad approximately every 3 hours. she has associated lower abd cramping. she reports she is 19 weeks 2 days . she denies any fever, diarrhea, back pain, dysuria, abnormal vaignal discharge. she states she has not yet had care but has an upcoming appointment in apr 2020. no pmhx. no allergies to meds. /P:2/A:0 - Related Data Previous Rx's Medication Instructions Recorded Last Taken Type Ibuprofen [Motrin] 600 mg PO Q8H PRN #12 tablet 05/26/18 Unknown Rx Cyclobenzaprine [Flexeril] 10 mg PO TID PRN #30 tablet 09/10/18 Unknown Rx Ibuprofen [Motrin 800 MG tab] 800 mg PO Q8HR PRN #30 tablet 09/10/18 Unknown Rx Menthol/Camphor [[place] 1 applicatio TP QID PRN #1 tube 09/10/18 Unknown Rx Ointment] Albuterol Mdi (or & Nicu Only) 2 puff IH QID PRN #8.5 gram 03/23/19 Unknown Rx [ProAir HFA Inhaler] Azithromycin [Zithromax Z-NICOLE] 250 mg PO DAILY #6 tab 03/23/19 Unknown Rx Benzonatate [Tessalon Perles] 100 mg PO Q8HR PRN #30 capsule 03/23/19 Unknown Rx Ibuprofen [Motrin 800 MG tab] 800 mg PO Q8HR PRN #30 tablet 03/23/19 Unknown Rx predniSONE [Deltasone] 40 mg PO QDAY 5 Days #10 tab 03/23/19 Unknown Rx Doxylamine Succinate/Vit B6 1 each PO BID #20 tablet. 02/28/20 Unknown Rx [Juwan [place]ke[place] 10-10 mg Tablet] Allergies Allergy/AdvReac Type Severity Reaction Status Date / Time No Known Allergies Allergy Verified 03/23/19 16:16 ED Review of Systems ROS: Stated complaint: 19WKS PREG/VAG BLEED/NO MOVEMENT Other details as noted in HPI Comment: All other systems reviewed and negative ED Past Medical Hx - Past Medical History Previous Medical History?: No Hx Hypertension: No Hx Congestive Heart Failure: No Hx Diabetes: No Hx Deep Vein Thrombosis: No Hx Renal Disease: No Hx Sickle Cell Disease: No Hx Seizures: No Hx Asthma: No Hx COPD: No Hx HIV: No - Surgical History Past Surgical History?: No - Social History Smoking Status: Never Smoker Substance Use Type: None - Medications Home Medications: Home Medications Medication Instructions Recorded Confirmed Last Taken Type Ibuprofen [Motrin] 600 mg PO Q8H PRN #12 tablet 05/26/18 Unknown Rx Cyclobenzaprine [Flexeril] 10 mg PO TID PRN #30 tablet 09/10/18 Unknown Rx Ibuprofen [Motrin 800 MG tab] 800 mg PO Q8HR PRN #30 tablet 09/10/18 Unknown Rx Menthol/Camphor [[place] 1 applicatio TP QID PRN #1 tube 09/10/18 Unknown Rx Ointment] Albuterol Mdi (or & Nicu Only) 2 puff IH QID PRN #8.5 gram 03/23/19 Unknown Rx [ProAir HFA Inhaler] Azithromycin [Zithromax Z-NICOLE] 250 mg PO DAILY #6 tab 03/23/19 Unknown Rx Benzonatate [Tessalon Perles] 100 mg PO Q8HR PRN #30 capsule 03/23/19 Unknown Rx Ibuprofen [Motrin 800 MG tab] 800 mg PO Q8HR PRN #30 tablet 03/23/19 Unknown Rx predniSONE [Deltasone] 40 mg PO QDAY 5 Days #10 tab 03/23/19 Unknown Rx Doxylamine Succinate/Vit B6 1 each PO BID #20 tablet. 02/28/20 Unknown Rx [Dic[address]yn[address] Dr 10-10 mg Tablet] ED Physical Exam - General Limitations: No Limitations General appearance: alert, in no apparent distress - Head Head exam: Present: atraumatic, normocephalic - Eye Eye exam: Present: normal appearance - ENT ENT exam: Present: mucous membranes moist - Respiratory Respiratory exam: Present: normal lung sounds bilaterally. Absent: respiratory distress, wheezes, rales, rhonchi, stridor, chest wall tenderness, accessory muscle use, decreased breath sounds, prolonged expiratory - Cardiovascular Cardiovascular Exam: Present: regular rate, normal rhythm, normal heart sounds. Absent: systolic murmur, diastolic murmur, rubs, gallop - GI/Abdominal GI/Abdominal exam: Present: soft, normal bowel sounds. Absent: distended, tenderness, guarding, rebound, rigid - Neurological Exam Neurological exam: Present: alert, oriented X3 - Psychiatric Psychiatric exam: Present: normal affect, normal mood - Skin Skin exam: Present: warm, dry, intact ED Course Vital Signs 04/04/20 11:12 Temperature 98.0 F Pulse Rate 80 Respiratory 18 Rate Blood Pressure 107/54 [Right] O2 Sat by Pulse 98 Oximetry ED Medical Decision Making - Lab Data Lab Results 04/04/20 Range/Units 11:23 Urine Color Yellow (Yellow) Urine Turbidity Clear (Clear) Urine pH 8.0 H (5.0-7.0) Ur Specific [place] 1.017 (1.003-1.030) Urine Protein 30 mg/dl (Negative) mg/dL Urine Glucose (UA) Neg (Negative) mg/dL Urine Ketones Neg (Negative) mg/dL Urine Blood Neg (Negative) Urine Nitrite Neg (Negative) Urine Bilirubin Neg (Negative) Urine Urobilinogen < 2.0 (<2.0) mg/dL Ur Leukocyte Esterase Sm (Negative) Urine WBC (Auto) 3.0 (0.0-6.0) /HPF Urine RBC (Auto) 2.0 (0.0-6.0) /HPF U Epithel Cells (Auto) 6.0 (0-13.0) /HPF Urine Mucus Few /HPF - Medical Decision Making Pt is a 24 yo female who presents to the ED with c/o vaginal bleeding that began last night. she states she is changing her pad approximately every 3 hours. she has associated lower abd cramping. she reports she is 19 weeks 2 days . she denies any fever, diarrhea, back pain, dysuria, abnormal vaignal discharge. she states she has not yet had care but has an upcoming appointment in apr 2020. no pmhx. no allergies to meds. /P:2/A:0. Vitals are normal. No abdominal tenderness on exam, no guarding, no rebound, no rigidity, normal bowel sounds, no peritoneal signs. Advised patient that we would need to do blood work, obtain a urine sample, and for an ultrasound to be performed, she verbalized understanding and was agreeable with plan. 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 Patient refused blood work. I advised patient the risks associated with leaving without a complete medical examination and AGAINST MEDICAL ADVICE. I discussed the risks to not only the patient but also her unborn fetus and she continued to states that she would leave AMA. The patient is alert and oriented x3. The patient exhibits decision-making capacity. The patient is free from distracting injury. The risk of leaving without a complete medical examination, and AGAINST MEDICAL ADVICE, were explained to the patient, and they included , disability, paralysis, permanent loss of quality of life. Patient verbalized understanding to these and was able to articulate these risk in their own words. Critical care attestation.: If time is entered above; I have spent that time in minutes in the direct care of this critically ill patient, excluding procedure time. ED Disposition Clinical Impression: Vaginal bleeding Abdominal pain Qualifiers: Abdominal location: lower abdomen, unspecified Qualified Code(s): R10.30 - Lower abdominal pain, unspecified Qualifiers: Weeks of gestation: unspecified Qualified Code(s): Z34.90 - Encounter for supervision of normal , unspecified, unspecified trimester Disposition: DC-07 LEFT AGAINST MED ADVICE Is pt being admited?: No Does the pt Need Aspirin: No Condition: Undetermined Referrals: PRIMARY CARE, [Primary Care Provider] - 3-5 Days Forms: AMA Form
[2020-04-04 12:07] LABS: Bilirubin,Urine NEG (Negative); Blood,Urine NEG (Negative); Color,Urine Yellow (Yellow); Mucus,Urine FEW /HPF; Urobilinogen,Urine < 2.0 mg/dL (<2.0)
--- NOTE | 2020-04-04 12:07 | Ultrasound Report ---
ULTRASOUND OBSTETRIC INDICATION: 19 weeks , abd pain, bleeding. Clinical Gestational Age (GA): Not provided. TECHNIQUE: Transabdominal. COMPARISON: OB ultrasound 02/28/2020 FINDINGS: There is a single intrauterine . Biparietal Diameter = 4.1 cm = 18 weeks, 3 day(s). Head Circumference = 14.8 cm = 17 weeks, 6 day(s). Abdominal Circumference = 11.5 cm = 17 weeks, 2 day(s). Femur Length = 2.2 cm = 16 weeks, 3 day(s). Average Ultrasound Age (AUA) = 17 weeks, 4 day(s). Heart Rate: 157 beats per minute. Estimated Weight in grams (if calculated): 178 g Estimated Weight Growth Percentile (if calculated): Not calculated. Position: cephalic. Cervix: closed. Length in cm (if measured): 2.3 Placenta: anterior and free of the os. Amniotic Fluid Volume: normal Amniotic Fluid Index (PAM) in cm (if calculated): Not calculated. Maternal Adnexa: No significant abnormality. IMPRESSION: 1. Single, living intrauterine with estimated sonographic age of 17 weeks, 4 day(s). 2. Shortened cervical length, 2.3 cm. Findings could represent cervical, and is. Recommend clinical c orrelation and further evaluation/follow-up as warranted. Signer Name: Ion Fowler MD Signed: 04/04/2020 12:03 PM Workstation Name: [id number]
== END 2020-04-04 12:11 | disposition left against medical advice (07) ==
LOC: ED 11:03
DX: O20.9 Hemorrhage in early pregnancy, unspecified (principal); Z3A.19 19 weeks gestation of pregnancy; Z79.1 Long term (current) use of non-steroidal anti-inflammatories (NSAID); Z79.899 Other long term (current) drug therapy
CPT/HCPCS: 76805; 81001

== ENCOUNTER 2020-05-14 09:17 | Outpatient (CLI) | payer OTHER ==
[2020-05-14 09:36] VITALS: BP 99/57
[2020-05-14 10:18] LABS: Bilirubin,Urine NEG (Negative); Blood,Urine NEG (Negative); Color,Urine Yellow (Yellow); Mucus,Urine 2+ /HPF; Protein,Urine <15 mg/dL mg/dL (Negative)
--- NOTE | 2020-05-14 11:25 | Event Note ---
Date: 05/14/20 Pt came in at 23+ weeks with vaginal itching and occ d/c. White creamy d/c noted on spec exam. PT sent home and terazol script given. RTO 1 week.
== END 2020-05-14 11:27 | disposition home or self-care (01) ==
LOC: TRG 09:17 → APU 09:19 → TRG 11:27
PROVIDERS: ATTEND Obstetrics & Gynecology
DX: O26.892 Other specified pregnancy related conditions, second trimester (principal); L29.9 Pruritus, unspecified; Z3A.23 23 weeks gestation of pregnancy
CPT/HCPCS: 81001

== ENCOUNTER 2020-07-03 20:54 | Outpatient (CLI) | payer MEDICAID, OTHER ==
[2020-07-03 21:30] VITALS: BP 111/57
[2020-07-03 22:32] LABS: Bacteria,Urine 1+ /HPF (Negative); Bilirubin,Urine NEG (Negative); Blood,Urine NEG (Negative); Color,Urine Yellow (Yellow); Mucus,Urine FEW /HPF; Protein,Urine <15 mg/dL mg/dL (Negative)
--- NOTE | 2020-07-03 22:52 | Event Note ---
Date: 07/03/20 Triage nurse called with pt c/o lower pelvic pain and urine dip abnormal with leucocytes and bacteria. Macrobid script sent to pharm of pt choice placed in the computer by the triage nurse. pt to make appt with [facility] where she attends to follow up in 1wk. FHR with reactive NST and no ctx per nurse report. PTL precaution given.
== END 2020-07-03 22:59 | disposition home or self-care (01) ==
LOC: TRG 20:54 → APU 21:13 → TRG 22:59
PROVIDERS: ATTEND Obstetrics & Gynecology
DX: O26.893 Other specified pregnancy related conditions, third trimester (principal); O23.43 Unspecified infection of urinary tract in pregnancy, third trimester; Z3A.30 30 weeks gestation of pregnancy
CPT/HCPCS: 59025; 81001; 87086

== ENCOUNTER 2020-07-21 12:41 | Outpatient (CLI) | payer OTHER ==
[2020-07-21 13:56] LABS: Bilirubin,Urine NEG (Negative); Blood,Urine NEG (Negative); Color,Urine Yellow (Yellow); Mucus,Urine 1+ /HPF; Protein,Urine <15 mg/dL mg/dL (Negative)
[2020-07-21] MEDS ORDERED: LACTATED RINGERS 1,000 ML IV SCH (14:00)
[2020-07-21 14:07] LABS: WBC,Urine < 1.0 /HPF (0.0-6.0)
[2020-07-21 15:19] VITALS: BP 110/75
== END 2020-07-21 15:31 | disposition home or self-care (01) ==
LOC: TRG 12:41 → APU 12:42 → TRG 15:31
DX: Z34.93 Encounter for supervision of normal pregnancy, unspecified, third trimester (principal); Z3A.33 33 weeks gestation of pregnancy
CPT/HCPCS: 81001

== ENCOUNTER 2020-08-05 17:54 | Outpatient (CLI) | payer OTHER ==
[2020-08-05 18:46] VITALS: BP 105/64
[2020-08-05] MEDS ORDERED: LACTATED RINGERS 500 ML IV ONE (19:07)
--- NOTE | 2020-08-05 21:41 | Ultrasound Report ---
ULTRASOUND OBSTETRIC LIMITED ULTRASOUND BIOPHYSICAL PROFILE INDICATION / CLINICAL INFORMATION: fetus positioning. Clinical Gestational Age (GA): 35.1 weeks.days COMPARISON: Obstetric ultrasound dated 04/04/2020. FINDINGS: BREATHING MOVEMENT = 2 GROSS BODY MOVEMENT = 2 TONE = 2 QUALITATIVE AMNIOTIC FLUID VOLUME = 2 TOTAL BIOPHYSICAL SCORE = 8/8 HEART RATE (beats per minute): 126 AMNIOTIC FLUID INDEX (cm) = 11.8 (normal = 7-24 cm) PRESENTATION: Cephalic. ADDITIONAL FINDINGS: None. IMPRESSION: 1. Biophysical Score = 8/8 2. Amniotic fluid index is 11.8 cm. Signer Name: Mayank Xiao MD Signed: 08/05/2020 9:36 PM Workstation Name: [id number]
== END 2020-08-05 21:15 | disposition home or self-care (01) ==
LOC: TRG 17:54 → APU 17:55 → TRG 21:15
PROVIDERS: ATTEND Obstetrics & Gynecology
DX: Z34.93 Encounter for supervision of normal pregnancy, unspecified, third trimester (principal); Z3A.35 35 weeks gestation of pregnancy
CPT/HCPCS: 36415; 59025; 76815; 76819; 84112